=== PATIENT | male | born 1980 | race Hispanic/Latino ===

== ENCOUNTER 2017-12-09 11:31 | Emergency (ER) | payer OTHER, SELFPAY ==
[2017-12-09 11:35] VITALS: BP 142/92; PULSE 104; RESP 18; TEMP 37.1; O2SAT 99
--- NOTE | 2017-12-09 11:54 | ED.ALLEREA ---
HPI - Allergic Reaction <Judy Coates PA-C - Last Filed: 12/09/17 17:22> General Chief complaint: Allergic Reaction Stated complaint: possible allergic reaction Time Seen by Provider: 12/09/17 11:40 Source: patient Mode of arrival: ambulatory Limitations: no limitations History of Present Illness HPI narrative: This 37-year-old male comes in due to 3-4 day history of increasing red skin lesion, starting to have some peeling and tight feeling especially in his palms and feet. He states that in the last 4 hr, he has felt shakes and chills. He states the rash is worse today in addition to this. He states earlier today his eyes felt a little bit swollen and maybe his throat a little bit but he thinks he was in managing this. He states that he has not had any difficulty swallowing. He has not had any shortness of breath though occasionally feels a slight air hunger. He denies any wheeze. He states the rash is somewhat itchy. He states chronic plaques are unchanged, but the rest of the rash is new. He was not out in the sun. He has not been on any new medications, however his dose of Toltz was doubled a week or so ago from 80 to 160mg. Related Data Previous Rx's Medication Instructions Recorded halobetasol propionate [Ultravate] 1 chioma TOPICAL BID #8 oz 11/14/16 zolpidem 5 mg PO HS #60 tab 03/25/17 citalopram 0 PO QDAY #180 tab 06/03/17 cyproheptadine 4 mg PO TID #90 tab 06/03/17 lisinopril [Prinivil] 20 mg PO BID #180 tab 12/10/17 Allergies Allergy/AdvReac Type Severity Reaction Status Date / Time No Known Allergies Allergy Uncoded 12/10/17 09:58 Review of Systems <Judy Coates PA-C - Last Filed: 12/09/17 17:22> Review of Systems All systems reviewed & are unremarkable except as noted in HPI and below Exam <Judy Coates PA-C - Last Filed: 12/09/17 17:22> Narrative Exam Narrative: GENERAL APPEARANCE: Patient sitting comfortably, in no distress. HEENT: PERRL, EOMI, normal oropharynx, no clear facial or lip edema NECK/THYROID: Neck supple, no masses. LUNGS: Clear to auscultation bilaterally. HEART: Regular rate and rhythm without murmur, normal S1, S2, no S3 or S4. EXTREMITIES: No cyanosis or edema. No calf tenderness NEUROLOGIC: Alert and oriented, normal speech, gait and coordination. DERM: Numerous erythematous and non erythematous plaques especially noted on the extensor surfaces of the extremities, also posterior to both ears. There is mayank, non-blancheable erythema noted on the anterior shins as well as the frontal area and scalp. Elsewhere there are scattered an and confluent dense maculopapular wheals. No bullous lesions. No pustules Initial Vital Signs Initial Vital Signs: Vital Signs Temperature 98.7 F 12/09/17 11:35 Pulse Rate 104 H 12/09/17 11:35 Respiratory Rate 18 12/09/17 11:35 Blood Pressure 142/92 H 12/09/17 11:35 Pulse Oximetry 99 12/09/17 11:35 <Marianna Ferderick DO - Last Filed: 12/12/17 12:25> Initial Vital Signs Initial Vital Signs: Vital Signs Temperature 98.7 F 12/09/17 11:35 Pulse Rate 104 H 12/09/17 11:35 Respiratory Rate 18 12/09/17 11:35 Blood Pressure 142/92 H 12/09/17 11:35 Pulse Oximetry 99 12/09/17 11:35 Const General: cooperative, healthy appearing, acute distress (mild) and No diaphoretic Nutritional Appearance: obese (moderate) Orientation: alert, awake and oriented x3 Limitations: mental status not altered [facility] Head: normocephalic and atraumatic Nose: nares normal Mouth: oral mucosae normal, lip normal and moist mucous membranes Eyes General: appearance normal, both eyes and all related structures Skin General: No crusts, No ecchymosis, No induration and warm Rashes: rashes noted (erythematous raised lesions of various sizes ranging from 1-3cm in patchy wheels consistent with hives. Patient also has multiple dry silver scaled plaques on elbows, legs, behind ears that he states have been present for a prolonged period.) Course <Judy Coates PA-C - Last Filed: 12/09/17 17:22> Additional Information: Dr. Frederick evaluated patient as well and advised this could be treated as severe urticarial/allergic reaction. No evidence of SJS/TEN at this point. Patient's erythema had improved somewhat while here. He would like to return home, agrees to continue steroids, Benadryl as needed and follow up with Dermatology 1st thing tomorrow. He agreed to return if any acutely worsening symptoms Orders Ordered: Discontinued Medications Diphenhydramine HCl (Benadryl) 50 mg IV NOW ONE Stop: 12/09/17 11:56 Last Admin: 12/09/17 12:04 Dose: 50 mg Sodium Chloride (Normal Saline 0.9%) 1,000 mls @ 1,000 mls/hr IV BOLUS ONE Stop: 12/09/17 13:09 Last Infusion: 12/09/17 13:49 Dose: 0 mls/hr Admin: 12/09/17 12:11 Dose: 1,000 mls/hr Methylprednisolone (Solu-Medrol 125 Mg Vial) 125 mg IV NOW ONE Stop: 12/09/17 12:04 Last Admin: 12/09/17 12:10 Dose: 125 mg Vital Signs - 8 hr 12/09/17 11:35 12/09/17 13:30 Temperature 98.7 F Pulse Rate 104 H 66 Respiratory Rate 18 Blood Pressure 142/92 H Blood Pressure [Right Arm] 117/49 L Pulse Oximetry 99 96 <Marianna Frederick, DO - Last Filed: 12/12/17 12:25> Orders Ordered: Discontinued Medications Diphenhydramine HCl (Benadryl) 50 mg IV NOW ONE Stop: 12/09/17 11:56 Last Admin: 12/09/17 12:04 Dose: 50 mg Sodium Chloride (Normal Saline 0.9%) 1,000 mls @ 1,000 mls/hr IV BOLUS ONE Stop: 12/09/17 13:09 Last Infusion: 12/09/17 13:49 Dose: 0 mls/hr Admin: 12/09/17 12:11 Dose: 1,000 mls/hr Methylprednisolone (Solu-Medrol 125 Mg Vial) 125 mg IV NOW ONE Stop: 12/09/17 12:04 Last Admin: 12/09/17 12:10 Dose: 125 mg Vital Signs - 8 hr 12/09/17 11:35 12/09/17 13:30 Temperature 98.7 F Pulse Rate 104 H 66 Respiratory Rate 18 Blood Pressure 142/92 H Blood Pressure [Right Arm] 117/49 L Pulse Oximetry 99 96 MDM - Allergic Reaction <Judy Coates PA-C - Last Filed: 12/09/17 17:22> Lab Data Attestation: I reviewed the patient's lab results. Result diagrams: 12/09/17 12:00 12/09/17 12:00 Lab Results 12/09/17 12/09/17 12/09/17 Range/Units 12:00 12:00 12:00 WBC 8.4 (4.5-11.0) X10^3/uL RBC 4.55 (4.5-5.9) X10^6/uL Hgb 13.0 L (13.5-17.5) g/dL Hct 38.1 L (41-53) % MCV 83.8 (80-100) fL MCH 28.6 (26-34) PG MCHC 34.2 (30-36) % RDW 13.5 (11.6-14.8) % Plt Count 305 (150-400) X10^3/uL Neut % (Auto) 66.8 (50-75) % Lymph % (Auto) 18.3 L (25-40) % [place] % (Auto) 8.3 (3-14) % Eos % (Auto) 6.3 H (2-4) % Baso % (Auto) 0.3 (0-2) % Neut # (Auto) 5600 (6023-0705) /uL PT 13.6 H (10.1-12.7) SECONDS INR 1.3 (0.9-1.3) APTT 30 (26.4-36.2) SECONDS Sodium 139 (137-145) mmol/L Potassium 3.5 (3.4-5.1) mmol/L Chloride 102 (98-107) mmol/L Carbon Dioxide 27 (22-32) mmol/L BUN 12 (9-20) mg/dL Creatinine 0.70 (0.66-1.25) mg/dL Estimated GFR > 60.0 (>60) mL/min BUN/Creatinine Ratio 17.1 (6-22) Glucose 103 H (70-100) mg/dL Lactate (0.7-2.1) mmol/L Calcium 9.2 (8.4-10.2) mg/dL Total Bilirubin 0.4 (0.2-1.3) mg/dL AST 39 (17-59) IU/L ALT 67 (21-72) IU/L Alkaline Phosphatase 78 (38-126) U/L Total Protein 8.2 (6.3-8.2) g/dL Albumin 4.5 (3.5-5.0) g/dL Globulin 3.7 (1.7-4.1) g/dL Albumin/Globulin Ratio 1.2 (1.0-2.8) Procalcitonin (<0.5) ng/mL 12/09/17 12/09/17 Range/Units 12:00 12:00 WBC (4.5-11.0) X10^3/uL RBC (4.5-5.9) X10^6/uL Hgb (13.5-17.5) g/dL Hct (41-53) % MCV (80-100) fL MCH (26-34) PG MCHC (30-36) % RDW (11.6-14.8) % Plt Count (150-400) X10^3/uL Neut % (Auto) (50-75) % Lymph % (Auto) (25-40) % [place] % (Auto) (3-14) % Eos % (Auto) (2-4) % Baso % (Auto) (0-2) % Neut # (Auto) (8933-5210) /uL PT (10.1-12.7) SECONDS INR (0.9-1.3) APTT (26.4-36.2) SECONDS Sodium (137-145) mmol/L Potassium (3.4-5.1) mmol/L Chloride (98-107) mmol/L Carbon Dioxide (22-32) mmol/L BUN (9-20) mg/dL Creatinine (0.66-1.25) mg/dL Estimated GFR (>60) mL/min BUN/Creatinine Ratio (6-22) Glucose (70-100) mg/dL Lactate 0.9 (0.7-2.1) mmol/L Calcium (8.4-10.2) mg/dL Total Bilirubin (0.2-1.3) mg/dL AST (17-59) IU/L ALT (21-72) IU/L Alkaline Phosphatase (38-126) U/L Total Protein (6.3-8.2) g/dL Albumin (3.5-5.0) g/dL Globulin (1.7-4.1) g/dL Albumin/Globulin Ratio (1.0-2.8) Procalcitonin < 0.05 (<0.5) ng/mL ECG Data Attestation: I personally reviewed and interpreted this ECG as follows: (Normal sinus rhythm with a rate 78) Prior ECG tracings: not available for review <Marianna Frederick DO - Last Filed: 12/12/17 12:25> Lab Data Lab Results 12/09/17 12/09/17 12/09/17 Range/Units 12:00 12:00 12:00 WBC 8.4 (4.5-11.0) X10^3/uL RBC 4.55 (4.5-5.9) X10^6/uL Hgb 13.0 L (13.5-17.5) g/dL Hct 38.1 L (41-53) % MCV 83.8 (80-100) fL MCH 28.6 (26-34) PG MCHC 34.2 (30-36) % RDW 13.5 (11.6-14.8) % Plt Count 305 (150-400) X10^3/uL Neut % (Auto) 66.8 (50-75) % Lymph % (Auto) 18.3 L (25-40) % [place] % (Auto) 8.3 (3-14) % Eos % (Auto) 6.3 H (2-4) % Baso % (Auto) 0.3 (0-2) % Neut # (Auto) 5600 (4957-7975) /uL PT 13.6 H (10.1-12.7) SECONDS INR 1.3 (0.9-1.3) APTT 30 (26.4-36.2) SECONDS Sodium 139 (137-145) mmol/L Potassium 3.5 (3.4-5.1) mmol/L Chloride 102 (98-107) mmol/L Carbon Dioxide 27 (22-32) mmol/L BUN 12 (9-20) mg/dL Creatinine 0.70 (0.66-1.25) mg/dL Estimated GFR > 60.0 (>60) mL/min BUN/Creatinine Ratio 17.1 (6-22) Glucose 103 H (70-100) mg/dL Lactate (0.7-2.1) mmol/L Calcium 9.2 (8.4-10.2) mg/dL Total Bilirubin 0.4 (0.2-1.3) mg/dL AST 39 (17-59) IU/L ALT 67 (21-72) IU/L Alkaline Phosphatase 78 (38-126) U/L Total Protein 8.2 (6.3-8.2) g/dL Albumin 4.5 (3.5-5.0) g/dL Globulin 3.7 (1.7-4.1) g/dL Albumin/Globulin Ratio 1.2 (1.0-2.8) Procalcitonin (<0.5) ng/mL 12/09/17 12/09/17 Range/Units 12:00 12:00 WBC (4.5-11.0) X10^3/uL RBC (4.5-5.9) X10^6/uL Hgb (13.5-17.5) g/dL Hct (41-53) % MCV (80-100) fL MCH (26-34) PG MCHC (30-36) % RDW (11.6-14.8) % Plt Count (150-400) X10^3/uL Neut % (Auto) (50-75) % Lymph % (Auto) (25-40) % [place] % (Auto) (3-14) % Eos % (Auto) (2-4) % Baso % (Auto) (0-2) % Neut # (Auto) (4597-9396) /uL PT (10.1-12.7) SECONDS INR (0.9-1.3) APTT (26.4-36.2) SECONDS Sodium (137-145) mmol/L Potassium (3.4-5.1) mmol/L Chloride (98-107) mmol/L Carbon Dioxide (22-32) mmol/L BUN (9-20) mg/dL Creatinine (0.66-1.25) mg/dL Estimated GFR (>60) mL/min BUN/Creatinine Ratio (6-22) Glucose (70-100) mg/dL Lactate 0.9 (0.7-2.1) mmol/L Calcium (8.4-10.2) mg/dL Total Bilirubin (0.2-1.3) mg/dL AST (17-59) IU/L ALT (21-72) IU/L Alkaline Phosphatase (38-126) U/L Total Protein (6.3-8.2) g/dL Albumin (3.5-5.0) g/dL Globulin (1.7-4.1) g/dL Albumin/Globulin Ratio (1.0-2.8) Procalcitonin < 0.05 (<0.5) ng/mL Discharge Plan Departure Patient Disposition: Home Clinical Impression: Adverse reaction to drug, Urticaria Discharge Date/Time: 12/09/17 14:08 Interventions: ED Discharge Assessment Last Done: 12/09/17 14:07 Instructions: DI for Hives, DI for Adverse Drug Reaction -- Allergic Activity Restrictions/Additional Instructions: Please take Benadryl as needed for itching, or if Benadryl makes you sleepy (you should not drive while using it), then take Zyrtec during the day and Benadryl at bedtime. I have sent a prescription for prednisone in to your pharmacy, please pick that up and continue taking it for the next few days. Please call your dermatology office 1st thing in the morning and let them know you were here and that we would like them to see you tomorrow to assess your progress. You should return here immediately if you have any acutely worsening symptoms as we talked about. Please also talk with your treatment specialist/PCP about whether it would be beneficial for you to have a rheumatology evaluation as well. Prescriptions: No Action halobetasol propionate [Ultravate] 0.05 % cream 1 chioma Topical BID Qty: 8 RF: 3 zolpidem 5 MG tablet 5 mg PO HS Qty: 60 RF: 0 cyproheptadine 4 MG tablet 4 mg PO TID Qty: 90 RF: 5 citalopram 20 MG tablet PO QDAY Qty: 180 RF: 5 lisinopril [Prinivil] 20 mg tablet 20 mg PO BID Qty: 180 RF: 1 Referrals: Genaro Dhillon PA-C [Non-Staff] - Eddie Garcia MD [Primary Care Provider] - Stand Alone Forms: Work/School Restrictions <Marianna Frederick DO - Last Filed: 12/12/17 12:25> Cosign ED Attending Cosroslynature Attestation: I was immediately available in the department for consultation and was asked to evaluate the patient. This documentation has been reviewed and I agree with assessment and plan. Supervised by Marianna Frederick DO
--- NOTE | 2017-12-09 11:58 | ED_ITS ---
HPI - Allergic Reaction <Judy Coates PA-C - Last Filed: 12/09/17 17:22> General Chief complaint: Allergic Reaction Stated complaint: possible allergic reaction Time Seen by Provider: 12/09/17 11:40 Source: patient Mode of arrival: ambulatory Limitations: no limitations History of Present Illness HPI narrative: This 37-year-old male comes in due to 3-4 day history of increasing red skin lesion, starting to have some peeling and tight feeling especially in his palms and feet. He states that in the last 4 hr, he has felt shakes and chills. He states the rash is worse today in addition to this. He states earlier today his eyes felt a little bit swollen and maybe his throat a little bit but he thinks he was in managing this. He states that he has not had any difficulty swallowing. He has not had any shortness of breath though occasionally feels a slight air hunger. He denies any wheeze. He states the rash is somewhat itchy. He states chronic plaques are unchanged, but the rest of the rash is new. He was not out in the sun. He has not been on any new medications, however his dose of Toltz was doubled a week or so ago from 80 to 160mg. Related Data Previous Rx's Medication Instructions Recorded halobetasol propionate [Ultravate] 1 chioma TOPICAL BID #8 oz 11/14/16 zolpidem 5 mg PO HS #60 tab 03/25/17 citalopram 0 PO QDAY #180 tab 06/03/17 cyproheptadine 4 mg PO TID #90 tab 06/03/17 lisinopril [Prinivil] 20 mg PO BID #180 tab 12/10/17 Allergies Allergy/AdvReac Type Severity Reaction Status Date / Time No Known Allergies Allergy Uncoded 12/10/17 09:58 Review of Systems <Judy Coates PA-C - Last Filed: 12/09/17 17:22> Review of Systems All systems reviewed & are unremarkable except as noted in HPI and below Exam <Judy Coates PA-C - Last Filed: 12/09/17 17:22> Narrative Exam Narrative: GENERAL APPEARANCE: Patient sitting comfortably, in no distress. HEENT: PERRL, EOMI, normal oropharynx, no clear facial or lip edema NECK/THYROID: Neck supple, no masses. LUNGS: Clear to auscultation bilaterally. HEART: Regular rate and rhythm without murmur, normal S1, S2, no S3 or S4. EXTREMITIES: No cyanosis or edema. No calf tenderness NEUROLOGIC: Alert and oriented, normal speech, gait and coordination. DERM: Numerous erythematous and non erythematous plaques especially noted on the extensor surfaces of the extremities, also posterior to both ears. There is mayank, non-blancheable erythema noted on the anterior shins as well as the frontal area and scalp. Elsewhere there are scattered an and confluent dense maculopapular wheals. No bullous lesions. No pustules Initial Vital Signs Initial Vital Signs: Vital Signs Temperature 98.7 F 12/09/17 11:35 Pulse Rate 104 H 12/09/17 11:35 Respiratory Rate 18 12/09/17 11:35 Blood Pressure 142/92 H 12/09/17 11:35 Pulse Oximetry 99 12/09/17 11:35 <Marianna Frederick DO - Last Filed: 12/12/17 12:25> Initial Vital Signs Initial Vital Signs: Vital Signs Temperature 98.7 F 12/09/17 11:35 Pulse Rate 104 H 12/09/17 11:35 Respiratory Rate 18 12/09/17 11:35 Blood Pressure 142/92 H 12/09/17 11:35 Pulse Oximetry 99 12/09/17 11:35 Const General: cooperative, healthy appearing, acute distress (mild) and No diaphoretic Nutritional Appearance: obese (moderate) Orientation: alert, awake and oriented x3 Limitations: mental status not altered [facility] Head: normocephalic and atraumatic Nose: nares normal Mouth: oral mucosae normal, lip normal and moist mucous membranes Eyes General: appearance normal, both eyes and all related structures Skin General: No crusts, No ecchymosis, No induration and warm Rashes: rashes noted (erythematous raised lesions of various sizes ranging from 1-3cm in patchy wheels consistent with hives. Patient also has multiple dry silver scaled plaques on elbows, legs, behind ears that he states have been present for a prolonged period.) Course <Judy Coates PA-C - Last Filed: 12/09/17 17:22> Additional Information: Dr. Frederick evaluated patient as well and advised this could be treated as severe urticarial/allergic reaction. No evidence of SJS/ TEN at this point. Patient's erythema had improved somewhat while here. He would like to return home, agrees to continue steroids, Benadryl as needed and follow up with Dermatology 1st thing tomorrow. He agreed to return if any acutely worsening symptoms Orders Ordered: Discontinued Medications Diphenhydramine HCl (Benadryl) 50 mg IV NOW ONE Stop: 12/09/17 11:56 Last Admin: 12/09/17 12:04 Dose: 50 mg Sodium Chloride (Normal Saline 0.9%) 1,000 mls @ 1,000 mls/hr IV BOLUS ONE Stop: 12/09/17 13:09 Last Infusion: 12/09/17 13:49 Dose: 0 mls/hr Admin: 12/09/17 12:11 Dose: 1,000 mls/hr Methylprednisolone (Solu-Medrol 125 Mg Vial) 125 mg IV NOW ONE Stop: 12/09/17 12:04 Last Admin: 12/09/17 12:10 Dose: 125 mg Vital Signs - 8 hr 12/09/17 11:35 12/09/17 13:30 Temperature 98.7 F Pulse Rate 104 H 66 Respiratory Rate 18 Blood Pressure 142/92 H Blood Pressure [Right Arm] 117/49 L Pulse Oximetry 99 96 <Marianna Frederick, DO - Last Filed: 12/12/17 12:25> Orders Ordered: Discontinued Medications Diphenhydramine HCl (Benadryl) 50 mg IV NOW ONE Stop: 12/09/17 11:56 Last Admin: 12/09/17 12:04 Dose: 50 mg Sodium Chloride (Normal Saline 0.9%) 1,000 mls @ 1,000 mls/hr IV BOLUS ONE Stop: 12/09/17 13:09 Last Infusion: 12/09/17 13:49 Dose: 0 mls/hr Admin: 12/09/17 12:11 Dose: 1,000 mls/hr Methylprednisolone (Solu-Medrol 125 Mg Vial) 125 mg IV NOW ONE Stop: 12/09/17 12:04 Last Admin: 12/09/17 12:10 Dose: 125 mg Vital Signs - 8 hr 12/09/17 11:35 12/09/17 13:30 Temperature 98.7 F Pulse Rate 104 H 66 Respiratory Rate 18 Blood Pressure 142/92 H Blood Pressure [Right Arm] 117/49 L Pulse Oximetry 99 96 MDM - Allergic Reaction <Judy Coates PA-C - Last Filed: 12/09/17 17:22> Lab Data Attestation: I reviewed the patient's lab results. Result diagrams: 12/09/17 12:00 12/09/17 12:00 Lab Results 12/09/17 12/09/17 12/09/17 Range/Units 12:00 12:00 12:00 WBC 8.4 (4.5-11.0) X10^3/uL RBC 4.55 (4.5-5.9) X10^6/uL Hgb 13.0 L (13.5-17.5) g/dL Hct 38.1 L (41-53) % MCV 83.8 (80-100) fL MCH 28.6 (26-34) PG MCHC 34.2 (30-36) % RDW 13.5 (11.6-14.8) % Plt Count 305 (150-400) X10^3/uL Neut % (Auto) 66.8 (50-75) % Lymph % (Auto) 18.3 L (25-40) % Angelina % (Auto) 8.3 (3-14) % Eos % (Auto) 6.3 H (2-4) % Baso % (Auto) 0.3 (0-2) % Neut # (Auto) 5600 (0691-9231) /uL PT 13.6 H (10.1-12.7) SECONDS INR 1.3 (0.9-1.3) APTT 30 (26.4-36.2) SECONDS Sodium 139 (137-145) mmol/L Potassium 3.5 (3.4-5.1) mmol/L Chloride 102 (98-107) mmol/L Carbon Dioxide 27 (22-32) mmol/L BUN 12 (9-20) mg/dL Creatinine 0.70 (0.66-1.25) mg/dL Estimated GFR > 60.0 (>60) mL/min BUN/Creatinine Ratio 17.1 (6-22) Glucose 103 H (70-100) mg/dL Lactate (0.7-2.1) mmol/L Calcium 9.2 (8.4-10.2) mg/dL Total Bilirubin 0.4 (0.2-1.3) mg/dL AST 39 (17-59) IU/L ALT 67 (21-72) IU/L Alkaline Phosphatase 78 (38-126) U/L Total Protein 8.2 (6.3-8.2) g/dL Albumin 4.5 (3.5-5.0) g/dL Globulin 3.7 (1.7-4.1) g/dL Albumin/Globulin Ratio 1.2 (1.0-2.8) Procalcitonin (<0.5) ng/mL 12/09/17 12/09/17 Range/Units 12:00 12:00 WBC (4.5-11.0) X10^3/uL RBC (4.5-5.9) X10^6/uL Hgb (13.5-17.5) g/dL Hct (41-53) % MCV (80-100) fL MCH (26-34) PG MCHC (30-36) % RDW (11.6-14.8) % Plt Count (150-400) X10^3/uL Neut % (Auto) (50-75) % Lymph % (Auto) (25-40) % Angelina % (Auto) (3-14) % Eos % (Auto) (2-4) % Baso % (Auto) (0-2) % Neut # (Auto) (8496-7049) /uL PT (10.1-12.7) SECONDS INR (0.9-1.3) APTT (26.4-36.2) SECONDS Sodium (137-145) mmol/L Potassium (3.4-5.1) mmol/L Chloride (98-107) mmol/L Carbon Dioxide (22-32) mmol/L BUN (9-20) mg/dL Creatinine (0.66-1.25) mg/dL Estimated GFR (>60) mL/min BUN/Creatinine Ratio (6-22) Glucose (70-100) mg/dL Lactate 0.9 (0.7-2.1) mmol/L Calcium (8.4-10.2) mg/dL Total Bilirubin (0.2-1.3) mg/dL AST (17-59) IU/L ALT (21-72) IU/L Alkaline Phosphatase (38-126) U/L Total Protein (6.3-8.2) g/dL Albumin (3.5-5.0) g/dL Globulin (1.7-4.1) g/dL Albumin/Globulin Ratio (1.0-2.8) Procalcitonin < 0.05 (<0.5) ng/mL ECG Data Attestation: I personally reviewed and interpreted this ECG as follows: (Normal sinus rhythm with a rate 78) Prior ECG tracings: not available for review <Marianna Frederick DO - Last Filed: 12/12/17 12:25> Lab Data Lab Results 12/09/17 12/09/17 12/09/17 Range/Units 12:00 12:00 12:00 WBC 8.4 (4.5-11.0) X10^3/uL RBC 4.55 (4.5-5.9) X10^6/uL Hgb 13.0 L (13.5-17.5) g/dL Hct 38.1 L (41-53) % MCV 83.8 (80-100) fL MCH 28.6 (26-34) PG MCHC 34.2 (30-36) % RDW 13.5 (11.6-14.8) % Plt Count 305 (150-400) X10^3/uL Neut % (Auto) 66.8 (50-75) % Lymph % (Auto) 18.3 L (25-40) % Angelina % (Auto) 8.3 (3-14) % Eos % (Auto) 6.3 H (2-4) % Baso % (Auto) 0.3 (0-2) % Neut # (Auto) 5600 (6109-2521) /uL PT 13.6 H (10.1-12.7) SECONDS INR 1.3 (0.9-1.3) APTT 30 (26.4-36.2) SECONDS Sodium 139 (137-145) mmol/L Potassium 3.5 (3.4-5.1) mmol/L Chloride 102 (98-107) mmol/L Carbon Dioxide 27 (22-32) mmol/L BUN 12 (9-20) mg/dL Creatinine 0.70 (0.66-1.25) mg/dL Estimated GFR > 60.0 (>60) mL/min BUN/Creatinine Ratio 17.1 (6-22) Glucose 103 H (70-100) mg/dL Lactate (0.7-2.1) mmol/L Calcium 9.2 (8.4-10.2) mg/dL Total Bilirubin 0.4 (0.2-1.3) mg/dL AST 39 (17-59) IU/L ALT 67 (21-72) IU/L Alkaline Phosphatase 78 (38-126) U/L Total Protein 8.2 (6.3-8.2) g/dL Albumin 4.5 (3.5-5.0) g/dL Globulin 3.7 (1.7-4.1) g/dL Albumin/Globulin Ratio 1.2 (1.0-2.8) Procalcitonin (<0.5) ng/mL 12/09/17 12/09/17 Range/Units 12:00 12:00 WBC (4.5-11.0) X10^3/uL RBC (4.5-5.9) X10^6/uL Hgb (13.5-17.5) g/dL Hct (41-53) % MCV (80-100) fL MCH (26-34) PG MCHC (30-36) % RDW (11.6-14.8) % Plt Count (150-400) X10^3/uL Neut % (Auto) (50-75) % Lymph % (Auto) (25-40) % Angelina % (Auto) (3-14) % Eos % (Auto) (2-4) % Baso % (Auto) (0-2) % Neut # (Auto) (7975-2839) /uL PT (10.1-12.7) SECONDS INR (0.9-1.3) APTT (26.4-36.2) SECONDS Sodium (137-145) mmol/L Potassium (3.4-5.1) mmol/L Chloride (98-107) mmol/L Carbon Dioxide (22-32) mmol/L BUN (9-20) mg/dL Creatinine (0.66-1.25) mg/dL Estimated GFR (>60) mL/min BUN/Creatinine Ratio (6-22) Glucose (70-100) mg/dL Lactate 0.9 (0.7-2.1) mmol/L Calcium (8.4-10.2) mg/dL Total Bilirubin (0.2-1.3) mg/dL AST (17-59) IU/L ALT (21-72) IU/L Alkaline Phosphatase (38-126) U/L Total Protein (6.3-8.2) g/dL Albumin (3.5-5.0) g/dL Globulin (1.7-4.1) g/dL Albumin/Globulin Ratio (1.0-2.8) Procalcitonin < 0.05 (<0.5) ng/mL Discharge Plan Departure Patient Disposition: Home Clinical Impression: Adverse reaction to drug, Urticaria Discharge Date/Time: 12/09/17 14:08 Interventions: ED Discharge Assessment Last Done: 12/09/17 14:07 Instructions: DI for Hives, DI for Adverse Drug Reaction -- Allergic Activity Restrictions/Additional Instructions: Please take Benadryl as needed for itching, or if Benadryl makes you sleepy ( you should not drive while using it), then take Zyrtec during the day and Benadryl at bedtime. I have sent a prescription for prednisone in to your pharmacy, please pick that up and continue taking it for the next few days. Please call your dermatology office 1st thing in the morning and let them know you were here and that we would like them to see you tomorrow to assess your progress. You should return here immediately if you have any acutely worsening symptoms as we talked about. 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 Prescriptions: No Action halobetasol propionate [Ultravate] 0.05 % cream 1 chioma Topical BID Qty: 8 RF: 3 zolpidem 5 MG tablet 5 mg PO HS Qty: 60 RF: 0 cyproheptadine 4 MG tablet 4 mg PO TID Qty: 90 RF: 5 citalopram 20 MG tablet PO QDAY Qty: 180 RF: 5 lisinopril [Prinivil] 20 mg tablet 20 mg PO BID Qty: 180 RF: 1 Referrals: Genaro Dhillon PA-C [Non-Staff] - Eddie Garcia MD [Primary Care Provider] - Stand Alone Forms: Work/School Restrictions <Marianna Frederick DO - Last Filed: 12/12/17 12:25> Cosign ED Attending Cosroslynature Attestation: I was immediately available in the department for consultation and was asked to evaluate the patient. This documentation has been reviewed and I agree with assessment and plan. Supervised by Marianna Frederick DO
[2017-12-09] MEDS: diphenhydrAMINE 50 MG/ML VIAL IV (12:04)
[2017-12-09] MEDS: methylPREDNISolone 125 MG/2 ML VIAL IV (12:10)
[2017-12-09] MEDS: SODIUM CHLORIDE 0.9% 1,000 ML 1000 ML IV (12:11)
[2017-12-09 12:12] LABS: Add Manual Diff / Slide Review NO; Basophils Percent Auto 0.3 % (0-2); Eosinophils Percent Auto 6.3 % (2-4); Hematocrit 38.1 % (41-53); Lymphocytes Percent Auto 18.3 % (25-40); Mean Corpuscular HGB Conc 34.2 % (30-36); Mean Corpuscular Hemoglobin 28.6 PG (26-34); Mean Corpuscular Volume 83.8 fL (80-100); Monocytes Percent Auto 8.3 % (3-14); Neutrophils Absolute Auto 5600 /uL (3000-5900); Neutrophils Percent Auto 66.8 % (50-75); Platelet Count 305 X10^3/uL (150-400); Red Blood Cell Count 4.55 X10^6/uL (4.5-5.9); Red Cell Distribution Width 13.5 % (11.6-14.8); White Blood Cell Count 8.4 X10^3/uL (4.5-11.0)
[2017-12-09 12:22] LABS: INR 1.3 (0.9-1.3); Prothrombin Time 13.6 SECONDS (10.1-12.7)
[2017-12-09 12:24] LABS: PTT Partial Thromboplastin Tim 30 SECONDS (26.4-36.2)
[2017-12-09 12:26] LABS: Alanine Aminotransferase 67 IU/L (21-72); Albumin 4.5 g/dL (3.5-5.0); Albumin Globulin Ratio 1.2 (1.0-2.8); Alkaline Phosphatase 78 U/L (38-126); Aspartate Aminotransferase 39 IU/L (17-59); BUN Creatinine Ratio 17.1 (6-22); Bilirubin Total 0.4 mg/dL (0.2-1.3); Blood Urea Nitrogen 12 mg/dL (9-20); Calcium 9.2 mg/dL (8.4-10.2); Carbon Dioxide 27 mmol/L (22-32); Chloride 102 mmol/L (98-107); Estimated Glomerular Filt Rate > 60.0 mL/min (>60); Globulin 3.7 g/dL (1.7-4.1); Glucose 103 mg/dL (70-100); HEMOLYSIS < 15 (0-50); Potassium 3.5 mmol/L (3.4-5.1); Sodium 139 mmol/L (137-145); Total Protein 8.2 g/dL (6.3-8.2)
[2017-12-09 12:27] LABS: Lactate (Lactic Acid) 0.9 mmol/L (0.7-2.1)
[2017-12-09 12:45] LABS: Procalcitonin < 0.05 ng/mL (<0.5)
[2017-12-09 13:30] VITALS: BP 117/49; PULSE 66; O2SAT 96
== END 2017-12-09 14:08 | disposition home or self-care (01) ==
PROVIDERS: Emergency Provider Internal Medicine; Family Provider Family Medicine; PCP Family Medicine
DX: L50.9 Urticaria, unspecified (principal); T50.905A Adverse effect of unspecified drugs, medicaments and biological substances, initial encounter
CPT/HCPCS: 36415; 36591; 80053; 83605; 84145; 85025; 85610; 85730; 87040; 93005; 93010; 96361; 96374; 96375; 99283; 99284; J1200; J2930

== ENCOUNTER → 2019-05-06 09:19 | Outpatient (CLI) | payer MEDICAID, SELFPAY ==
[2019-05-06 10:25] LABS: Appearance Urine UA CLEAR; Bilirubin Urine UA NEGATIVE (NEGATIVE); Color Urine UA YELLOW; Glucose Urine UA NEGATIVE (Negative); Ketones Urine UA NEGATIVE (NEGATIVE); Leukocyte Esterase Urine UA NEGATIVE (NEGATIVE); Nitrite Urine UA NEGATIVE (Negative); Occult Blood Urine UA NEGATIVE (Negative); Protein Urine UA TRACE (Negative); Specific Gravity Urine UA 1.015 (1.000-1.035); Urobilinogen Urine UA 0.2 E.U./dL (0.2); pH Urine UA 6.5 (4.5-8.0)
[2019-05-06 10:26] LABS: Add Manual Diff / Slide Review NO; Basophils Absolute Auto 0 /uL (0-100); Basophils Percent Auto 0.6 % (0-2); Eosinophils Absolute Auto 200 /uL (0-450); Eosinophils Percent Auto 2.2 % (2-4); Hematocrit 40.7 % (41-53); Lymphocytes Absolute Auto 1600 /uL (1100-4500); Mean Corpuscular HGB Conc 34.4 % (30-36); Mean Corpuscular Hemoglobin 28.7 PG (26-34); Mean Corpuscular Volume 83.5 fL (80-100); Monocytes Absolute Auto 600 /uL (0-900); Monocytes Percent Auto 7.6 % (3-14); Neutrophils Absolute Auto 5500 /uL (1500-7000); Neutrophils Percent Auto 69.6 % (50-75); Platelet Count 336 X10^3/uL (150-400); Red Blood Cell Count 4.88 X10^6/uL (4.5-5.9); Red Cell Distribution Width 13.4 % (11.6-14.8); White Blood Cell Count 7.8 X10^3/uL (4.5-11.0)
[2019-05-06 10:30] LABS: Hemoglobin A1C% w Est Avg Glu 5.3 % (4.0-6.0)
[2019-05-06 10:36] LABS: Alanine Aminotransferase 77 IU/L (<50); Albumin 5.1 g/dL (3.5-5.0); Albumin Globulin Ratio 1.2 (1.0-2.8); Alkaline Phosphatase 88 U/L (38-126); Aspartate Aminotransferase 42 IU/L (17-59); Bilirubin Total 0.6 mg/dL (0.2-1.3); Blood Urea Nitrogen 14 mg/dL (9-20); Calcium 10.1 mg/dL (8.4-10.2); Carbon Dioxide 26 mmol/L (22-32); Chloride 100 mmol/L (98-107); Cholesterol 167 mg/dL (140-199); Estimated Glomerular Filt Rate > 60.0 mL/min (>60); Globulin 4.3 g/dL (1.7-4.1); Glucose 110 mg/dL (70-100); HDL Cholesterol 37 mg/dL (40-60); HEMOLYSIS < 15 (0-50); LDL Cholesterol Calculated 104 mg/dL (<100); Potassium 4.3 mmol/L (3.4-5.1); Sodium 140 mmol/L (137-145); Total Protein 9.4 g/dL (6.3-8.2); Triglycerides 131 mg/dL (35-150)
[2019-05-06 11:35] LABS: Thyroid Stimulating Hormone 1.38 uIU/mL (0.47-4.68)
[2019-05-09 11:44] LABS: Mitogen-NIL > 10.00 IU/mL; NIL 0.01 IU/mL; QuantiFERON TB NEGATIVE (Negative); TB1-NIL < 0.01 IU/mL; TB2-NIL < 0.01 IU/mL
== END ==
PROVIDERS: Family Provider Physician Assistant; PCP Family Medicine; Visit Provider Family Medicine
DX: I10 Essential (primary) hypertension (principal); L40.0 Psoriasis vulgaris
CPT/HCPCS: 36415; 80053; 80061; 81003; 83036; 84443; 85025; 86480

== ENCOUNTER → 2020-01-20 15:18 | Outpatient (CLI) | payer MEDICAID, SELFPAY ==
[2020-01-20 15:42] LABS: Add Manual Diff / Slide Review NO; Basophils Absolute Auto 100 /uL (0-100); Basophils Percent Auto 0.7 % (0-2); Eosinophils Absolute Auto 100 /uL (0-450); Eosinophils Percent Auto 0.9 % (2-4); Hematocrit 41.9 % (41-53); Lymphocytes Absolute Auto 1700 /uL (1100-4500); Lymphocytes Percent Auto 19.3 % (25-40); Mean Corpuscular HGB Conc 33.3 % (30-36); Mean Corpuscular Hemoglobin 27.7 PG (26-34); Mean Corpuscular Volume 83.2 fL (80-100); Monocytes Absolute Auto 500 /uL (0-900); Neutrophils Absolute Auto 6400 /uL (1500-7000); Neutrophils Percent Auto 73.1 % (50-75); Platelet Count 329 X10^3/uL (150-400); Red Blood Cell Count 5.04 X10^6/uL (4.5-5.9); Red Cell Distribution Width 13.7 % (11.6-14.8); White Blood Cell Count 8.7 X10^3/uL (4.5-11.0)
[2020-01-20 16:21] LABS: Alanine Aminotransferase 71 IU/L (<50); Albumin 4.9 g/dL (3.5-5.0); Albumin Globulin Ratio 1.2 (1.0-2.8); Alkaline Phosphatase 86 U/L (38-126); Aspartate Aminotransferase 39 IU/L (17-59); BUN Creatinine Ratio 16.9 (6-22); Bilirubin Total 0.4 mg/dL (0.2-1.3); Blood Urea Nitrogen 11 mg/dL (9-20); Calcium 9.8 mg/dL (8.4-10.2); Carbon Dioxide 29 mmol/L (22-32); Chloride 100 mmol/L (98-107); Cholesterol 162 mg/dL (140-199); Estimated Glomerular Filt Rate > 60.0 mL/min (>60); Glucose 98 mg/dL (70-100); HDL Cholesterol 52 mg/dL (40-60); HEMOLYSIS < 15 (0-50); LDL Cholesterol Calculated 84 mg/dL (<100); Potassium 3.9 mmol/L (3.4-5.1); Sodium 138 mmol/L (137-145); Total Protein 8.9 g/dL (6.3-8.2); Triglycerides 129 mg/dL (35-150)
[2020-01-20 16:52] LABS: Prostate Specific Antigen Scrn 0.641 ng/mL (0.1-4.0)
== END ==
PROVIDERS: Family Provider Physician Assistant; PCP Family Medicine; Referring Provider Family Medicine; Visit Provider Family Medicine
DX: I10 Essential (primary) hypertension (principal); Z12.5 Encounter for screening for malignant neoplasm of prostate
CPT/HCPCS: 36415; 80053; 80061; 84443; 85025; G0103

== ENCOUNTER → 2020-02-16 10:12 | Outpatient (CLI) | payer MEDICAID, SELFPAY ==
[2020-02-16 11:50] LABS: COVID19 -Nasal RAPID Negative (Negative)
== END ==
PROVIDERS: Family Provider Physician Assistant; PCP Family Medicine; Visit Provider Surgery
DX: Z11.59 Encounter for screening for other viral diseases (principal); K60.2 Anal fissure, unspecified
CPT/HCPCS: 87635; C9803

== ENCOUNTER 2020-02-17 13:09 | Day surgery (SDC) | payer MEDICAID, SELFPAY ==
[2020-02-11 12:45] VITALS: BMI 38.7
[2020-02-17] VITALS (9 sets, daily range): BP systolic 126–155; BP diastolic 72–83; PULSE 65–89; RESP 8–18; TEMP 36.3–37.2; O2SAT 94–98; BMI 37.7
[2020-02-17] MEDS: LACTATED RINGERS 1,000 ML 42 ML IV (13:41)
--- NOTE | 2020-02-17 13:55 | PM.PREOP ---
Pre-operative Note COVID-19 COVID-19 status: Negative Result date/Date tested (Pos, Neg/Pending): 02/16/20 Interval Note History & Physical reviewed/Exam performed by Physician: Yes Changes to H&P: No
[2020-02-17] MEDS: CEFAZOLIN 2 GM/100 ML FROZ.PIGGY IV (14:00)
[2020-02-17] MEDS: metroNIDAZOLE 500 MG/100 ML PIGGYBACK 100 MG IV (14:12)
--- NOTE | 2020-02-17 14:38 | SUR.OPER ---
Prone on padded OR bed, head in foam head support, gel chest rolls, gel pad under knees, pillow under lower legs, toes free of pressure, arms secured on padded arm boards at <90 degrees abduction. Safety belt at thigh.
[2020-02-17] MEDS: BUPIVACAINE 0.5% W/ EPI (PF) 30 ML VIAL 60 ML INJ (14:47)
[2020-02-17] MEDS: BUPIVACAINE LIPOSOME 266 MG/20 ML VIAL INJ (14:48)
[2020-02-17] MEDS: DIBUCAINE 1% OINT 28 GM 1 APPLIC TOP (14:48)
--- NOTE | 2020-02-17 15:14 | PM.OP.1 ---
Operative Date/Time/Diagnoses Date of procedure: 02/17/20 Time of procedure: 15:14 Pre-op diagnosis: chronic anal fissure, hemorrhoids Post-op diagnosis: other (Chronic anal fissure, circumferential internal and external hemorrhoids) Procedure & Clinicians Procedure: Fissurectomy Internal lateral sphincterotomy Anorectal exam under anesthesia Same procedure as scheduled: Yes Indications: Anal pain, long-term chronic posterior midline anal fissure Surgeon: Sharon Moise Anesthesia Type: General Operative Notes Findings: Posterior midline chronic anal fissure, circumferential internal and external hemorrhoids Specimen(s): none sent Estimated Blood Loss (mL): 2 Procedure in detail: The patient was brought into the OR. Sequential compression devices were placed on both legs and turned on. Appropriate perioperative antibiotics were given. General anesthesia was induced and the patient was intubated. The patient was turned prone onto the OR table. All bony prominences were padded. The buttocks were taped apart. The perianal area was prepped and draped in sterile fashion with betadine prep. Surgical timeout was conducted. 0.25% Marcaine with epi was used to perform a four quadrant anal block using 5mL per quadrant for a total of 20mL. On external exam there were large external hemorrhoids seen and a large, deep chronic posterior midline fissure. With copious lubricant, an anorectal exam was performed. Large internal hemorrhoids were seen circumferentially. Per the patient's preference, no surgical removal was performed of the internal or external hemorrhoids. No masses, or abnormalities of the anal canal were seen other than the hemorrhoids. The posterior midline revealed a large deep chronic fissure with exposed muscle. The chronic fissure scar tissue was removed using cautery, being careful to avoid injuring the muscle. The anoderm was then closed with 3-0 Vicryl. Attention was then turned to the left lateral anoderm at 9:00 position. A small skin incision was made overlying the anal sphincter muscle. The skin was opened and dissection was carried down to the anal sphincter using a mosquito clamp. The internal sphincter was located and 4mm of muscle was divided, consistent with the length of the fissure. The anoderm was closed with 4-0 chromic suture. 20mL of Exparel was used to inject the anoderm and anal canal circumferentially 2-3mL per cm. A large Gelfoam was then coated and rolled with Dibucaine and placed in the anal canal. A thick layer of Dibucaine was used to coat the anoderm. A stack of 4x4 gauze was then used to cover the anal opening and secured in place with medipore tape. The patient was transferred onto her hospital bed into supine position. He was then awakened from anesthesia and extubated. Needle, sponge, and instrument counts were correct x 2. The patient was transferred to the PACU in stable condition. Complications: none Post-operative Condition: stable Disposition: PACU
[2020-02-17] MEDS: ACETAMINOPHEN 325 MG TABLET 650 MG PO (15:31)
[2020-02-17] MEDS: ONDANSETRON 4 MG/2 ML INJ IV (16:07)
[2020-02-17] MEDS: fentaNYL 100 MCG/2 ML INJ IV (16:07)
--- NOTE | 2020-02-17 16:54 | SUR.PHASEII ---
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
== END 2020-02-17 16:54 | disposition home or self-care (01) ==
PROVIDERS: Family Provider Physician Assistant; PCP Family Medicine; Referring Provider Family Medicine; Visit Provider Surgery
PROC: (CPT 46200; principal; 2020-02-17 13:15)
DX: K60.1 Chronic anal fissure (principal); I10 Essential (primary) hypertension; K64.8 Other hemorrhoids; K64.4 Residual hemorrhoidal skin tags
CPT/HCPCS: 46200; C9290; J0690; J2405; J2704; J3010

== ENCOUNTER → 2020-12-16 11:49 | Outpatient (CLI) | payer MEDICAID, SELFPAY ==
[2020-12-16 12:36] LABS: Add Manual Diff / Slide Review NO; Basophils Absolute Auto 0 /uL (0-100); Basophils Percent Auto 0.2 % (0-2); Eosinophils Absolute Auto 800 /uL (0-450); Eosinophils Percent Auto 7.9 % (2-4); Hematocrit 42.3 % (41-53); Hemoglobin 13.8 g/dL (13.5-17.5); Lymphocytes Absolute Auto 2200 /uL (1100-4500); Mean Corpuscular HGB Conc 32.7 % (30-36); Mean Corpuscular Volume 85.6 fL (80-100); Monocytes Absolute Auto 800 /uL (0-900); Monocytes Percent Auto 7.7 % (3-14); Neutrophils Absolute Auto 6200 /uL (1500-7000); Neutrophils Percent Auto 62.2 % (50-75); Platelet Count 320 X10^3/uL (150-400); Red Blood Cell Count 4.94 X10^6/uL (4.5-5.9); Red Cell Distribution Width 13.9 % (11.6-14.8)
[2020-12-16 13:04] LABS: Alanine Aminotransferase 52 IU/L (<50); Albumin 4.4 g/dL (3.5-5.0); Albumin Globulin Ratio 1.6 (1.0-2.8); Alkaline Phosphatase 63 U/L (38-126); Aspartate Aminotransferase 37 IU/L (17-59); Bilirubin Total 0.3 mg/dL (0.2-1.3); Blood Urea Nitrogen 13 mg/dL (9-20); Calcium 9.6 mg/dL (8.4-10.2); Carbon Dioxide 30 mmol/L (22-32); Chloride 103 mmol/L (98-107); Estimated Glomerular Filt Rate > 60.0 mL/min (>60); Globulin 2.8 g/dL (1.7-4.1); Glucose 96 mg/dL (70-100); HEMOLYSIS < 15 (0-50); Potassium 5.2 mmol/L (3.4-5.1); Sodium 139 mmol/L (137-145); Total Protein 7.2 g/dL (6.3-8.2)
[2020-12-21 10:09] LABS: QuantiFERON Mitogen Value >10.00 IU/mL (.); QuantiFERON Nil Value 0.04 IU/mL (.); QuantiFERON TB Gold Plus Negative (Negative); QuantiFERON TB1 Ag Value 0.04 IU/mL (.); QuantiFERON TB2 Ag Value 0.05 IU/mL (.)
== END ==
PROVIDERS: Family Provider Physician Assistant; PCP Family Medicine; Referring Provider Physician Assistant Medical; Visit Provider Physician Assistant Medical
DX: Z79.899 Other long term (current) drug therapy (principal); L40.0 Psoriasis vulgaris
CPT/HCPCS: 36415; 80053; 85025; 86480

== ENCOUNTER → 2021-03-10 09:36 | Outpatient (CLI) | payer MEDICAID, SELFPAY ==
[2021-03-10 10:35] LABS: Alanine Aminotransferase 36 IU/L (<50); Albumin 4.5 g/dL (3.5-5.0); Albumin Globulin Ratio 1.5 (1.0-2.8); Alkaline Phosphatase 52 U/L (38-126); Aspartate Aminotransferase 23 IU/L (17-59); BUN Creatinine Ratio 20.8 (6-22); Bilirubin Total 0.4 mg/dL (0.2-1.3); Blood Urea Nitrogen 15 mg/dL (9-20); Calcium 9.8 mg/dL (8.4-10.2); Carbon Dioxide 32 mmol/L (22-32); Chloride 102 mmol/L (98-107); Cholesterol 161 mg/dL (140-199); Estimated Glomerular Filt Rate > 60.0 mL/min (>60); Glucose 94 mg/dL (70-100); HDL Cholesterol 58 mg/dL (40-60); HEMOLYSIS < 15 (0-50); LDL Cholesterol Calculated 90 mg/dL (<100); Potassium 4.2 mmol/L (3.4-5.1); Sodium 142 mmol/L (137-145); Total Protein 7.5 g/dL (6.3-8.2); Triglycerides 65 mg/dL (35-150)
== END ==
PROVIDERS: Family Provider Physician Assistant; PCP Family Medicine; Referring Provider Physician Assistant Medical; Visit Provider Physician Assistant Medical
DX: E87.5 Hyperkalemia (principal); I10 Essential (primary) hypertension
CPT/HCPCS: 36415; 80053; 80061

== ENCOUNTER → 2021-03-13 08:52 | Outpatient (CLI) | payer MEDICAID, SELFPAY ==
[2021-03-16 04:15] LABS: Alder IgE <0.10 kU/L (Class 0); Almond IgE <0.10 kU/L (Class 0); Alternaria alternata IgE <0.10 kU/L (Class 0); Aspergillus fumigatus IgE <0.10 kU/L (Class 0); Cashew Nut IgE <0.10 kU/L (Class 0); Cladosporium herbarum IgE <0.10 kU/L (Class 0); Cockroach IgE <0.10 kU/L (Class 0); Codfish Allergy IgE < 0.10 kU/L (Class 0); D farinae IgE <0.10 kU/L (Class 0); Dog Dander IgE <0.10 kU/L (Class 0); Egg White IgE <0.10 kU/L (Class 0); Elm Tree IgE <0.10 kU/L (Class 0); Hazelnut IgE <0.10 kU/L (Class 0); IgE Bermuda Grass <0.10 kU/L (Class 0); IgE Maple Leaf Sycamore <0.10 kU/L (Class 0); IgE Olive Tree <0.10 kU/L (Class 0); IgE Thistle,Russian <0.10 kU/L (Class 0); IgE White Mulberry <0.10 kU/L (Class 0); Milk IgE <0.10 kU/L (Class 0); Mountain Cedar IgE <0.10 kU/L (Class 0); Mouse Urine Proteins IgE <0.10 kU/L (Class 0); Oak Tree IgE <0.10 kU/L (Class 0); Peanut IgE <0.10 kU/L (Class 0); Penicillium chrysogen IgE <0.10 kU/L (Class 0); Pigweed, Common IgE <0.10 kU/L (Class 0); Ragweed, Short <0.10 kU/L (Class 0); Salmon Allergy IgE < 0.10 kU/L (Class 0); Scallop Allergy IgE < 0.10 kU/L (Class 0); Sesame seed Allergy IgE < 0.10 kU/L (Class 0); Shrimp IgE <0.10 kU/L (Class 0); Silver Birch IgE <0.10 kU/L (Class 0); Soybean IgE <0.10 kU/L (Class 0); Timothy Grass IgE <0.10 kU/L (Class 0); Tuna Allergy IgE < 0.10 kU/L (Class 0); Walnut IgE <0.10 kU/L (Class 0); Wheat Allergy IgE < 0.10 kU/L (Class 0)
[2021-03-22 15:58] LABS: Cat Dander IgE <0.10
[2021-03-22 15:59] LABS: D pteronyssinus IgE <0.10 kU/L (Class 0)
== END ==
PROVIDERS: Family Provider Physician Assistant; PCP Family Medicine; Referring Provider Family Medicine; Visit Provider Family Medicine
DX: L23.9 Allergic contact dermatitis, unspecified cause (principal)
CPT/HCPCS: 36415; 82785; 86003

== ENCOUNTER → 2021-06-22 15:24 | Outpatient (CLI) | payer MEDICAID, SELFPAY ==
[2021-07-03 11:36] LABS: Bullous Pemphigoid 180 IgG AB 106.9 U/ml (.); Bullous Pemphigoid 230 IgG AB <1.0 U/ml (.)
== END ==
PROVIDERS: Family Provider Physician Assistant; PCP Family Medicine; Referring Provider Dermatology; Visit Provider Dermatology
DX: L12.0 Bullous pemphigoid (principal)
CPT/HCPCS: 36415; 83516; 86255

== ENCOUNTER 2022-06-23 17:14 | Emergency (ER) | payer OTHER, SELFPAY ==
[2022-06-23] VITALS (16 sets, daily range): BP systolic 138–175; BP diastolic 65–111; PULSE 54–82; RESP 14–42; TEMP 36.6; O2SAT 96–98; BMI 38.6
--- NOTE | 2022-06-23 17:27 | DI.RAD.S_ITS ---
PROCEDURE: XR CHEST 1V INDICATIONS: chest pain TECHNIQUE: One view of the chest was acquired. COMPARISON: [facility], , CHEST 2 VIEW, 06/24/2016, 12:00. FINDINGS: Surgical changes and devices: None. Lungs and pleura: Lungs are hyperexpanded/diaphragms. No focal consolidation. No pleural effusions or pneumothorax. Mediastinum: Mediastinal contours appear normal. Heart size is normal. Bones and chest wall: No suspicious bony lesions. Overlying soft tissues appear unremarkable. IMPRESSION: No acute cardiopulmonary process. Dictated by: Michael Mohr M.D. on 06/23/2022 at 17:09 Approved by: Michael Mohr M.D. on 06/23/2022 at 17:09
[2022-06-23 17:40] LABS: Add Manual Diff / Slide Review NO; Basophils Absolute Auto 100 /uL (0-100); Basophils Percent Auto 0.6 % (0-2); Eosinophils Absolute Auto 200 /uL (0-450); Eosinophils Percent Auto 1.7 % (2-4); Hematocrit 37.2 % (41-53); Hemoglobin 12.7 g/dL (13.5-17.5); Lymphocytes Absolute Auto 2400 /uL (1100-4500); Lymphocytes Percent Auto 24.7 % (25-40); Mean Corpuscular Hemoglobin 28.4 PG (26-34); Mean Corpuscular Volume 83.3 fL (80-100); Monocytes Absolute Auto 900 /uL (0-900); Neutrophils Absolute Auto 6300 /uL (1500-7000); Platelet Count 296 X10^3/uL (150-400); Red Blood Cell Count 4.47 X10^6/uL (4.5-5.9); Red Cell Distribution Width 13.4 % (11.6-14.8); White Blood Cell Count 9.9 X10^3/uL (4.5-11.0)
[2022-06-23 17:46] LABS: INR 1.2 (0.9-1.3); Prothrombin Time 14.3 SECONDS (10.1-12.7)
[2022-06-23 17:49] LABS: PTT Partial Thromboplastin Tim 32 SECONDS (26-36)
[2022-06-23 17:51] LABS: Alanine Aminotransferase 47 IU/L (<50); Albumin 4.7 g/dL (3.5-5.0); Albumin Globulin Ratio 1.3 (1.0-2.8); Alkaline Phosphatase 86 U/L (38-126); Aspartate Aminotransferase 36 IU/L (17-59); BUN Creatinine Ratio 15.7 (6-22); Bilirubin Total 0.3 mg/dL (0.2-1.3); Blood Urea Nitrogen 16 mg/dL (9-20); Calcium 9.1 mg/dL (8.4-10.2); Carbon Dioxide 27 mmol/L (22-32); Chloride 102 mmol/L (98-107); Creatine Kinase 546 U/L (55-170); Estimated Glomerular Filt Rate > 60 mL/min (>60); Globulin 3.7 g/dL (1.7-4.1); Glucose 104 mg/dL (70-100); HEMOLYSIS < 15 (0-50); Lipase 157 U/L (23-300); Magnesium 1.8 mg/dL (1.6-2.3); Potassium 3.7 mmol/L (3.4-5.1); Sodium 140 mmol/L (137-145); Total Protein 8.4 g/dL (6.3-8.2)
[2022-06-23 18:03] LABS: Troponin I < 0.012 ng/mL (0.01-0.034)
[2022-06-23 18:06] LABS: CKMB % Relative Index 0.5 % (1.5-5.0); Creatine Kinase MB 2.61 ng/mL (<2.37)
--- NOTE | 2022-06-23 19:32 | ED_ITS ---
HPI - Arrhythmia/Palpitations General Chief Complaint: Arrhythmia/Palpitations Stated Complaint: heart skipping, flushed, wendy of breath, legs tingl Time Seen by Provider: 06/23/22 17:27 Mode of arrival: Family Vehicle History of Present Illness HPI narrative: 42-year-old male smoker with history of hypertension presents with his in the chief complaint of abnormal heart rhythm and the sensation that his heart is dropping beats over the course of the day. He states when these episodes happen it is very uncomfortable for him and he feels briefly short of breath and perhaps even the sensation of pressure which resolves soon thereafter. He denies any persistent pain. He denies any dizziness, weakness or lightheadedness. He has no nausea, vomiting or diarrhea. He denies any new medications or significant dietary change but does state that he had some nicotine vape pen earlier in the day for the 1st time in quite some time. Related Data Home Medications Medication Instructions Recorded Confirmed guselkumab 100 mg/mL subcutaneous 100 mg SUBCUT Q8W 01/20/20 03/13/21 syringe (Stevensonfya) triamcinolone acetonide 0.1 % 1 applic topical 03/13/21 03/13/21 topical cream Previous Rx's Medication Instructions Recorded clobetasol 0.05 % topical gel 1 applic topical BID 2 weeks #30 10/24/20 grams amlodipine 2.5 mg tablet See Rx Instructions .Route 02/24/22 .COMPLEX #90 tabs lisinopril 20 mg tablet See Rx Instructions .Route 02/24/22 .COMPLEX #180 tabs Allergies Allergy/AdvReac Type Severity Reaction Status Date / Time No Known Drug Allergies Allergy Verified 06/23/22 17:27 Review of Systems Review of Systems Narrative: GENERAL: Denies chills, fatigue, malaise, fever, sweats. HEENT: Denies sinus pain, ear pain, sore throat, difficulty swallowing, dizziness. RESPIRATORY: Denies dyspnea, cough, wheezing, hemoptysis, sputum. CARDIOVASCULAR: See HPI GASTROINTESTINAL: Denies nausea, vomiting, abdominal pain, diarrhea, constipation, melena. : Denies dysuria, frequency, incontinence, hematuria, urinary retention. MUSCULOSKELETAL: denies weakness, joint pain, or bony pain SKIN: Denies rash, skin lesions, or other NEUROLOGIC: Denies weakness, headache, numbness, change in speech, confusion, seizures, incoordination. PSYCHIATRIC: No concerning psychosocial issues. 12 point review of systems is negative except for those stated above Patient History Medical History Abnormal colonoscopy Allergic dermatitis Depression External hemorrhoids HTN (hypertension) Psoriasis Well adult Surgical History History of ankle surgery History of eye surgery Social History household members: family Smoking Status: Current some day smoker Tobacco: How many years used: 8 Smokeless tobacco user: other alcohol intake: current (socially ) substance use type: marijuana (1 gram daily ) Smoking Status: Current some day smoker tobacco type: vaping Substance Use Type: does not use and marijuana Exam Narrative Exam Narrative: GENERAL: [42] year old patient appears stated age. Well-developed patient, in mild distress. HEAD: Atraumatic. Normocephalic. EYES: Pupils equal round and reactive. Extraocular motions intact. No scleral icterus. No injection or drainage. ENT: Nose without bleeding, purulent drainage. Throat without erythema, tonsillar hypertrophy or exudate. Airway patent. NECK: Trachea midline. Non tender CARDIOVASCULAR: Regular rate and rhythm without murmurs, gallops, or rubs. RESPIRATORY: Clear to auscultation. Breath sounds equal bilaterally. No wheezes, rales, or rhonchi. GASTROINTESTINAL: Abdomen soft, non-tender, nondistended. EXTREMITIES: No edema or joint tenderness. BACK: Nontender without deformity or crepitance. No flank tenderness. NEURO: AOx3. SKIN: No rash or erythema of visible areas Initial Vital Signs Initial Vital Signs: Vital Signs Temperature 97.8 F 06/23/22 17:21 Pulse Rate 74 06/23/22 17:21 Respiratory Rate 16 06/23/22 17:21 Blood Pressure 172/84 H 06/23/22 17:21 Pulse Oximetry 97 06/23/22 17:21 Oxygen Delivery Method Room Air 06/23/22 17:21 Course Orders Ordered: Discontinued Medications Aspirin (Aspirin 81 Mg Chew Tab) 324 mg PO NOW ONE Stop: 06/23/22 17:28 Last Admin: 06/23/22 17:59 Dose: Not Given Documented By: KLS Reevaluation(s) Reevaluation #1: While sitting at the bedside watching the cardiac rehabilitation program director it became very clear that there was a very tight temporal relationship between the occasional PAC in the patient's symptoms Vital Signs Vital signs: Vital Signs - 8 hr 06/23/22 17:21 06/23/22 17:36 06/23/22 17:47 Temperature 97.8 F Pulse Rate 74 82 78 Respiratory Rate 16 31 H 17 Blood Pressure 172/84 H Pulse Oximetry 97 98 98 Oxygen Delivery Method Room Air 06/23/22 17:47 06/23/22 18:00 06/23/22 18:01 Temperature Pulse Rate 71 72 Respiratory Rate Blood Pressure 159/74 H Pulse Oximetry 97 97 Oxygen Delivery Method 06/23/22 18:01 06/23/22 18:15 06/23/22 18:15 Temperature Pulse Rate 72 Respiratory Rate 14 Blood Pressure 175/80 H 160/66 H Pulse Oximetry 97 Oxygen Delivery Method 06/23/22 18:30 06/23/22 18:30 06/23/22 18:45 Temperature Pulse Rate 80 68 Respiratory Rate 17 18 Blood Pressure 157/70 H Pulse Oximetry 96 97 Oxygen Delivery Method 06/23/22 18:45 06/23/22 19:00 06/23/22 19:00 Temperature Pulse Rate 68 Respiratory Rate 20 Blood Pressure 161/68 H 151/66 H Pulse Oximetry 96 Oxygen Delivery Method MDM - Arrhythmia/Palpitations Lab Data 06/23/22 17:35 06/23/22 17:35 Labs: Lab Results 06/23/22 06/23/22 06/23/22 Range/Units 17:35 17:35 17:35 WBC 9.9 (4.5-11.0) X10^3/uL RBC 4.47 L (4.5-5.9) X10^6/uL Hgb 12.7 L (13.5-17.5) g/dL Hct 37.2 L (41-53) % MCV 83.3 (80-100) fL MCH 28.4 (26-34) PG MCHC 34.0 (30-36) % RDW 13.4 (11.6-14.8) % Plt Count 296 (150-400) X10^3/uL Neut % (Auto) 64.0 (50-75) % Lymph % (Auto) 24.7 L (25-40) % [place] % (Auto) 9.0 (3-14) % Eos % (Auto) 1.7 L (2-4) % Baso % (Auto) 0.6 (0-2) % Neut # (Auto) 6300 (7695-3118) /uL Lymph # (Auto) 2400 (4326-6031) /uL [place] # (Auto) 900 (0-900) /uL Eos # (Auto) 200 (0-450) /uL Baso # (Auto) 100 (0-100) /uL PT 14.3 H (10.1-12.7) SECONDS INR 1.2 (0.9-1.3) APTT 32 (26-36) SECONDS Sodium 140 (137-145) mmol/L Potassium 3.7 (3.4-5.1) mmol/L Chloride 102 (98-107) mmol/L Carbon Dioxide 27 (22-32) mmol/L BUN 16 (9-20) mg/dL Creatinine 1.02 (0.66-1.25) mg/dL Estimated GFR > 60 (>60) mL/min BUN/Creatinine Ratio 15.7 (6-22) Glucose 104 H (70-100) mg/dL Calcium 9.1 (8.4-10.2) mg/dL Magnesium 1.8 (1.6-2.3) mg/dL Total Bilirubin 0.3 (0.2-1.3) mg/dL AST 36 (17-59) IU/L ALT 47 (<50) IU/L Alkaline Phosphatase 86 (38-126) U/L Total Creatine Kinase 546 H (55-170) U/L CK-MB (CK-2) 2.61 H (<2.37) ng/mL CK-MB (CK-2) Rel Index 0.5 L (1.5-5.0) % Troponin I < 0.012 (0.01-0.034) ng/mL Total Protein 8.4 H (6.3-8.2) g/dL Albumin 4.7 (3.5-5.0) g/dL Globulin 3.7 (1.7-4.1) g/dL Albumin/Globulin Ratio 1.3 (1.0-2.8) Lipase 157 (23-300) U/L TSH (0.47-4.68) uIU/mL 06/23/22 06/23/22 Range/Units 17:35 19:35 WBC (4.5-11.0) X10^3/uL RBC (4.5-5.9) X10^6/uL Hgb (13.5-17.5) g/dL Hct (41-53) % MCV (80-100) fL MCH (26-34) PG MCHC (30-36) % RDW (11.6-14.8) % Plt Count (150-400) X10^3/uL Neut % (Auto) (50-75) % Lymph % (Auto) (25-40) % [place] % (Auto) (3-14) % Eos % (Auto) (2-4) % Baso % (Auto) (0-2) % Neut # (Auto) (6140-4159) /uL Lymph # (Auto) (5412-6918) /uL [place] # (Auto) (0-900) /uL Eos # (Auto) (0-450) /uL Baso # (Auto) (0-100) /uL PT (10.1-12.7) SECONDS INR (0.9-1.3) APTT (26-36) SECONDS Sodium (137-145) mmol/L Potassium (3.4-5.1) mmol/L Chloride (98-107) mmol/L Carbon Dioxide (22-32) mmol/L BUN (9-20) mg/dL Creatinine (0.66-1.25) mg/dL Estimated GFR (>60) mL/min BUN/Creatinine Ratio (6-22) Glucose (70-100) mg/dL Calcium (8.4-10.2) mg/dL Magnesium (1.6-2.3) mg/dL Total Bilirubin (0.2-1.3) mg/dL AST (17-59) IU/L ALT (<50) IU/L Alkaline Phosphatase (38-126) U/L Total Creatine Kinase 476 H (55-170) U/L CK-MB (CK-2) 2.04 (<2.37) ng/mL CK-MB (CK-2) Rel Index 0.4 L (1.5-5.0) % Troponin I < 0.012 (0.01-0.034) ng/mL Total Protein (6.3-8.2) g/dL Albumin (3.5-5.0) g/dL Globulin (1.7-4.1) g/dL Albumin/Globulin Ratio (1.0-2.8) Lipase (23-300) U/L TSH 0.660 (0.47-4.68) uIU/mL Urine Dip Bedside Urine Glucose Negative Bedside Urine Bilirubin - Negative Bedside Urine Ketone - Negative Urine Specific [place] 1.010 Bedside Urine Occult Blood - Negative Bedside Urine pH 6.0 Bedside Urine Protein - Negative Bedside Urine Urobilinogen - Negative Bedside Urine Nitrite - Negative Bedside Urine Leukocytes - Negative Esterase MDM Narrative Medical decision making narrative: [42] year old patient presents with palpitations Multiple etiologies for patient's symptoms considered including, but not limited to: [PACs versus PVCs versus electrolyte abnormality versus PE versus] Prior Charts reviewed in our EMR Primary Historian: patient Labs reviewed and interpreted by myself: No significant lab abnormalities Imaging reviewed: No acute process Patient's palpitations seem most certainly be related to PACs as his symptoms are very closely related to when a PACs noted on the monitor. He does have a few likely contributors, most likely his recent use of nicotine. Other diagnoses as noted above considered but thought unlikely given patient's history and physical exam as well as labs and EKGs. Patient's symptoms improved over duration of stay with above-stated therapies. Findings and discharge diagnosis discussed with patient/family followed by verbalization of understanding Return precautions discussed with patient/family whom verbalize understanding of diagnosis and plan Discharge Plan Departure Patient Disposition: Home Clinical Impression: Palpitations, PAC (premature atrial contraction) Instructions: DI for Palpitations Activity Restrictions/Additional Instructions: *You have been diagnosed with [palpitations, likely all premature atrial contractions. As we discussed your history and physical exam as well as labs, EKG and chest x-ray are all very reassuring and there is no evidence of any significant underlying cause. As we discussed this is frequently due to multiple small factors that create a perfect storm, it seems likely that the addition of nicotine played a role, perhaps some mild dehydration among others.] *What to do: *Please continue to take your regular medications as directed. [ ] New medication prescriptions sent to your pharmacy: [ ] [ ] New medication written as a paper prescription [ ] No new medications given *Please follow up with your primary care provider in 2-3 days, call for an appointment. Let them know you were seen in the Emergency Department and that we ask that you be seen in follow up. We will electronically transmit a record of today's note if your PCP is in our system *If you do not have a primary care provider please contact the [facility] Resource line at [phone]. They will ask some questions about your medical history and help get you set up with a doctor in the community. *Return to Emergency Department if you should have any new, worsening or concerning symptoms, such as [fever greater than 101 F, shaking chills, worsening pain, persistent vomiting or other bothersome symptoms] Prescriptions: No Action amlodipine 2.5 mg tablet See Rx Instructions .ROUTE .COMPLEX Qty: 90 0RF Dose Instruction: TAKE ONE TABLET BY MOUTH NIGHTLY AT BEDTIME Rx Instructions: TAKE ONE TABLET BY MOUTH NIGHTLY AT BEDTIME lisinopril 20 mg tablet See Rx Instructions .ROUTE .COMPLEX Qty: 180 0RF Dose Instruction: TAKE ONE TABLET BY MOUTH TWICE DAILY Rx Instructions: TAKE ONE TABLET BY MOUTH TWICE DAILY Tremfya 100 mg/mL syringe 100 mg SUBCUT Q8W clobetasol 0.05 % gel 1 applic topical BID 14 Days Qty: 30 1RF triamcinolone acetonide 0.1 % cream 1 applic topical Referrals: Bipin Perry DO [Primary Care Provider] - Stand Alone Forms: Patient Portal/API
[2022-06-23 19:55] LABS: Creatine Kinase 476 U/L (55-170)
[2022-06-23 20:08] LABS: Troponin I < 0.012 ng/mL (0.01-0.034)
[2022-06-23 20:11] LABS: CKMB % Relative Index 0.4 % (1.5-5.0); Creatine Kinase MB 2.04 ng/mL (<2.37)
== END 2022-06-23 20:53 | disposition home or self-care (01) ==
PROVIDERS: Emergency Provider Emergency Medicine; Family Provider Physician Assistant; PCP Family Medicine
DX: R00.2 Palpitations (principal); I49.1 Atrial premature depolarization
CPT/HCPCS: 36415; 71045; 80053; 81003; 82550; 82553; 83690; 83735; 84443; 84484; 85025; 85610; 85730; 93005; 99284

== ENCOUNTER → 2023-02-05 08:02 | Outpatient (CLI) | payer OTHER, SELFPAY ==
[2023-02-05 09:09] LABS: Add Manual Diff / Slide Review NO; Basophils Absolute Auto 0 /uL (0-100); Basophils Percent Auto 0.5 % (0-2); Eosinophils Absolute Auto 200 /uL (0-450); Eosinophils Percent Auto 2.7 % (2-4); Hematocrit 37.9 % (41-53); Hemoglobin 12.6 g/dL (13.5-17.5); Lymphocytes Absolute Auto 1900 /uL (1100-4500); Lymphocytes Percent Auto 23.3 % (25-40); Mean Corpuscular HGB Conc 33.2 % (30-36); Mean Corpuscular Volume 84.2 fL (80-100); Monocytes Absolute Auto 600 /uL (0-900); Monocytes Percent Auto 7.4 % (3-14); Neutrophils Absolute Auto 5300 /uL (1500-7000); Neutrophils Percent Auto 66.1 % (50-75); Platelet Count 293 X10^3/uL (150-400); Red Cell Distribution Width 14.6 % (11.6-14.8)
[2023-02-05 09:15] LABS: Hemoglobin A1C% w Est Avg Glu 5.8 % (4.0-6.0)
[2023-02-05 09:23] LABS: Alanine Aminotransferase 43 IU/L (<50); Albumin 4.5 g/dL (3.5-5.0); Albumin Globulin Ratio 1.4 (1.0-2.8); Alkaline Phosphatase 75 U/L (38-126); Aspartate Aminotransferase 30 IU/L (17-59); BUN Creatinine Ratio 18.8 (6-22); Bilirubin Total 0.3 mg/dL (0.2-1.3); Blood Urea Nitrogen 13 mg/dL (9-20); Carbon Dioxide 28 mmol/L (22-32); Chloride 101 mmol/L (98-107); Cholesterol 167 mg/dL (140-199); Estimated Glomerular Filt Rate > 60 mL/min (>60); Globulin 3.2 g/dL (1.7-4.1); Glucose 102 mg/dL (70-100); HDL Cholesterol 53 mg/dL (40-60); HEMOLYSIS < 15 (0-50); LDL Cholesterol Calculated 94 mg/dL (<100); Sodium 139 mmol/L (137-145); Total Protein 7.7 g/dL (6.3-8.2); Triglycerides 99 mg/dL (35-150)
== END ==
PROVIDERS: Family Provider Physician Assistant; PCP Family Medicine; Referring Provider Family Medicine; Visit Provider Family Medicine
DX: R73.03 Prediabetes (principal); S46.012A Strain of muscle(s) and tendon(s) of the rotator cuff of left shoulder, initial encounter; F41.9 Anxiety disorder, unspecified; E34.9 Endocrine disorder, unspecified
CPT/HCPCS: 36415; 80053; 80061; 83036; 85025

== ENCOUNTER → 2023-02-26 07:57 | Outpatient (CLI) | payer OTHER, SELFPAY ==
[2023-02-26 09:35] LABS: HEMOLYSIS < 15 (0-50); Iron 60 ug/dL (49-181)
[2023-02-26 09:45] LABS: Percent Iron Saturation 14 % (20-50); Total Iron Binding Capacity 438 ug/dL (261-462); Transferrin 382 mg/dL (206-381)
[2023-02-26 10:19] LABS: Vitamin B12 441 pg/mL (239-931)
== END ==
PROVIDERS: Family Provider Physician Assistant; PCP Family Medicine; Referring Provider Family Medicine; Visit Provider Family Medicine
DX: R89.9 Unspecified abnormal finding in specimens from other organs, systems and tissues (principal); D64.9 Anemia, unspecified; Z13.21 Encounter for screening for nutritional disorder
CPT/HCPCS: 36415; 82607; 83540; 83550

== ENCOUNTER → 2023-07-09 06:59 | Outpatient (CLI) | payer OTHER, SELFPAY ==
[2023-07-09 08:18] LABS: Add Manual Diff / Slide Review NO; Basophils Absolute Auto 0 /uL (0-100); Basophils Percent Auto 0.4 % (0-2); Eosinophils Absolute Auto 200 /uL (0-450); Eosinophils Percent Auto 2.3 % (2-4); Hematocrit 37.8 % (41-53); Hemoglobin 12.8 g/dL (13.5-17.5); Lymphocytes Absolute Auto 2300 /uL (1100-4500); Lymphocytes Percent Auto 24.4 % (25-40); Mean Corpuscular HGB Conc 33.7 % (30-36); Mean Corpuscular Hemoglobin 28.9 PG (26-34); Mean Corpuscular Volume 85.8 fL (80-100); Monocytes Absolute Auto 700 /uL (0-900); Monocytes Percent Auto 7.2 % (3-14); Neutrophils Absolute Auto 6100 /uL (1500-7000); Neutrophils Percent Auto 65.7 % (50-75); Platelet Count 286 X10^3/uL (150-400); Red Blood Cell Count 4.41 X10^6/uL (4.5-5.9); Red Cell Distribution Width 13.9 % (11.6-14.8); White Blood Cell Count 9.4 X10^3/uL (4.5-11.0)
[2023-07-09 08:46] LABS: HEMOLYSIS < 15 (0-50); Iron 72 ug/dL (49-181)
[2023-07-09 09:00] LABS: Percent Iron Saturation 16 % (20-50); Total Iron Binding Capacity 440 ug/dL (261-462); Transferrin 370 mg/dL (206-381)
[2023-07-09 09:34] LABS: Vitamin B12 401 pg/mL (239-931)
== END ==
PROVIDERS: Family Provider Physician Assistant; PCP Family Medicine; Referring Provider Family Medicine; Visit Provider Family Medicine
DX: D64.9 Anemia, unspecified (principal)
CPT/HCPCS: 36415; 82607; 83540; 83550; 85025

== ENCOUNTER → 2023-07-16 17:17 | Outpatient (CLI) | payer OTHER, SELFPAY ==
--- NOTE | 2023-07-16 17:18 | DI.RAD.S_ITS ---
PROCEDURE: XR SHOULDER LT MIN 2V INDICATIONS: L shoulder pain TECHNIQUE: Three views of the shoulder were acquired. COMPARISON: None. FINDINGS: Bones: No fractures or dislocations. No suspicious bony lesions. Visualized ribs appear intact. Soft tissues: No suspicious soft tissue calcifications. IMPRESSION: No acute bony abnormality. Dictated by: Pam Witt M.D. on 07/17/2023 at 10:47 Approved by: Pam Witt M.D. on 07/17/2023 at 10:48
== END ==
LOC: RAD 17:17
PROVIDERS: Family Provider Physician Assistant; PCP Family Medicine; Referring Provider Family Medicine; Visit Provider Family Medicine
DX: M25.512 Pain in left shoulder (principal)
CPT/HCPCS: 73030

== ENCOUNTER → 2024-01-15 15:02 | Outpatient (CLI) | payer BC, SELFPAY ==
--- NOTE | 2024-01-15 15:03 | DI.RAD.S_ITS ---
PROCEDURE: XR KNEE RT 3V INDICATIONS: pain swelling x8 days TECHNIQUE: 3 views of the knee were acquired. COMPARISON: None. FINDINGS: Bones: No fractures or dislocations. No patellar subluxation. Joint spaces are fairly well preserved. No suspicious bony lesions. Soft tissues: Small joint effusion. No suspicious soft tissue calcifications. IMPRESSION: No acute right knee fracture or dislocation. Small joint effusion. Dictated by: Khris Rinaldi M.D. on 01/15/2024 at 16:32 Approved by: Khris Rinaldi M.D. on 01/15/2024 at 16:32
== END ==
PROVIDERS: Family Provider Physician Assistant; PCP Family Medicine; Referring Provider Physician Assistant; Visit Provider Physician Assistant
DX: S86.919A Strain of unspecified muscle(s) and tendon(s) at lower leg level, unspecified leg, initial encounter (principal); M25.461 Effusion, right knee
CPT/HCPCS: 73562

== ENCOUNTER → 2024-07-17 06:44 | Outpatient (CLI) | payer BC, SELFPAY ==
[2024-07-17 07:53] LABS: Add Manual Diff / Slide Review NO; Basophils Absolute Auto 0 /uL (0-100); Basophils Percent Auto 0.4 % (0-2); Eosinophils Absolute Auto 200 /uL (0-450); Eosinophils Percent Auto 2.6 % (2-4); Hematocrit 37.5 % (41-53); Hemoglobin 12.5 g/dL (13.5-17.5); Lymphocytes Absolute Auto 2300 /uL (1100-4500); Lymphocytes Percent Auto 25.3 % (25-40); Mean Corpuscular HGB Conc 33.4 % (30-36); Mean Corpuscular Hemoglobin 28.9 PG (26-34); Mean Corpuscular Volume 86.5 fL (80-100); Monocytes Absolute Auto 700 /uL (0-900); Monocytes Percent Auto 7.3 % (3-14); Neutrophils Absolute Auto 5800 /uL (1500-7000); Neutrophils Percent Auto 64.4 % (50-75); Platelet Count 248 X10^3/uL (150-400); Red Blood Cell Count 4.34 X10^6/uL (4.5-5.9); Red Cell Distribution Width 13.8 % (11.6-14.8)
[2024-07-17 08:02] LABS: Hemoglobin A1C% w Est Avg Glu 5.2 % (4.0-6.0)
[2024-07-17 08:09] LABS: HEMOLYSIS < 15 (0-50); Iron 62 ug/dL (49-181)
[2024-07-17 08:17] LABS: Alanine Aminotransferase 42 IU/L (<50); Albumin 4.7 g/dL (3.5-5.0); Albumin Globulin Ratio 1.7 (1.0-2.8); Alkaline Phosphatase 66 U/L (38-126); Aspartate Aminotransferase 33 IU/L (17-59); BUN Creatinine Ratio 30.8 (6-22); Bilirubin Total 0.3 mg/dL (0.2-1.3); Blood Urea Nitrogen 24 mg/dL (9-20); Calcium 9.7 mg/dL (8.4-10.2); Carbon Dioxide 28 mmol/L (22-32); Chloride 102 mmol/L (98-107); Cholesterol 175 mg/dL (140-199); Estimated Glomerular Filt Rate > 60 mL/min (>60); Globulin 2.7 g/dL (1.7-4.1); Glucose 104 mg/dL (70-100); HDL Cholesterol 52 mg/dL (40-60); HEMOLYSIS < 15 (0-50); LDL Cholesterol Calculated 100 mg/dL (<100); Potassium 4.8 mmol/L (3.4-5.1); Sodium 139 mmol/L (137-145); Total Protein 7.4 g/dL (6.3-8.2); Triglycerides 114 mg/dL (35-150)
[2024-07-17 08:21] LABS: Percent Iron Saturation 15 % (20-50); Total Iron Binding Capacity 424 ug/dL (261-462); Transferrin 346 mg/dL (206-381)
[2024-07-17 08:59] LABS: Vitamin B12 430 pg/mL (239-931)
== END ==
PROVIDERS: Family Provider Physician Assistant; PCP Family Medicine; Referring Provider Family Medicine; Visit Provider Family Medicine
DX: D64.9 Anemia, unspecified (principal); I10 Essential (primary) hypertension; E66.9 Obesity, unspecified; R73.03 Prediabetes
CPT/HCPCS: 36415; 80053; 80061; 82607; 83036; 83540; 83550; 85025

== ENCOUNTER → 2024-09-25 06:55 | Outpatient (CLI) | payer BC, SELFPAY ==
[2024-09-25 07:42] LABS: Add Manual Diff / Slide Review NO; Basophils Absolute Auto 0 /uL (0-100); Basophils Percent Auto 0.4 % (0-2); Eosinophils Absolute Auto 200 /uL (0-450); Eosinophils Percent Auto 2.5 % (2-4); Hematocrit 38.6 % (41-53); Lymphocytes Absolute Auto 2600 /uL (1100-4500); Lymphocytes Percent Auto 29.2 % (25-40); Mean Corpuscular HGB Conc 33.7 % (30-36); Mean Corpuscular Hemoglobin 29.1 PG (26-34); Mean Corpuscular Volume 86.4 fL (80-100); Monocytes Absolute Auto 600 /uL (0-900); Monocytes Percent Auto 6.5 % (3-14); Neutrophils Absolute Auto 5400 /uL (1500-7000); Neutrophils Percent Auto 61.4 % (50-75); Platelet Count 264 X10^3/uL (150-400); Red Blood Cell Count 4.47 X10^6/uL (4.5-5.9); Red Cell Distribution Width 13.9 % (11.6-14.8); White Blood Cell Count 8.8 X10^3/uL (4.5-11.0)
[2024-09-25 07:54] LABS: HEMOLYSIS < 15 (0-50); Iron 74 ug/dL (49-181)
[2024-09-25 07:57] LABS: Alanine Aminotransferase 41 IU/L (<50); Albumin 4.8 g/dL (3.5-5.0); Albumin Globulin Ratio 1.6 (1.0-2.8); Alkaline Phosphatase 72 U/L (38-126); Aspartate Aminotransferase 32 IU/L (17-59); BUN Creatinine Ratio 21.5 (6-22); Bilirubin Total 0.5 mg/dL (0.2-1.3); Blood Urea Nitrogen 17 mg/dL (9-20); Calcium 9.9 mg/dL (8.4-10.2); Carbon Dioxide 30 mmol/L (22-32); Chloride 100 mmol/L (98-107); Estimated Glomerular Filt Rate > 60 mL/min (>60); Glucose 100 mg/dL (70-99); HEMOLYSIS < 15 (0-50); Potassium 4.7 mmol/L (3.4-5.1); Sodium 139 mmol/L (137-145); Total Protein 7.8 g/dL (6.3-8.2)
[2024-09-25 08:05] LABS: Percent Iron Saturation 17 % (20-50); Total Iron Binding Capacity 443 ug/dL (261-462); Transferrin 379 mg/dL (206-381)
[2024-09-25 08:26] LABS: TSH w/ Reflex to FT4 1.98 uIU/mL (0.47-4.68)
[2024-09-25 08:46] LABS: Vitamin B12 471 pg/mL (239-931)
== END ==
PROVIDERS: Family Provider Physician Assistant; PCP Family Medicine; Referring Provider Family Medicine; Visit Provider Family Medicine
DX: D64.9 Anemia, unspecified (principal); R73.03 Prediabetes; I10 Essential (primary) hypertension
CPT/HCPCS: 36415; 80053; 82607; 83540; 83550; 84443; 85025